=== PATIENT | male | born 2000 | race Hispanic/Latino ===

== ENCOUNTER 2019-09-24 00:44 | Emergency (ER) | payer MEDICAID, OTHER, SELFPAY | END 2019-09-24 01:31 | disposition home or self-care (01) | LOC: EDH 00:44 | DX: R06.00 Dyspnea, unspecified (principal); Z20.828 Contact with and (suspected) exposure to other viral communicable diseases; Z72.0 Tobacco use | CPT/HCPCS: 36415; 87635 ==

== ENCOUNTER 2019-12-18 17:50 | Emergency (ER) | payer OTHER, SELFPAY | END 2019-12-18 18:47 | disposition home or self-care (01) | LOC: EDH 17:50 | DX: R05 Cough (principal); R50.9 Fever, unspecified; R11.2 Nausea with vomiting, unspecified; M79.10 Myalgia, unspecified site; Z20.828 Contact with and (suspected) exposure to other viral communicable diseases; Z72.0 Tobacco use | CPT/HCPCS: 99281 ==

== ENCOUNTER 2020-03-15 22:27 | Emergency (ER) | payer OTHER ==
[2020-03-15 23:20] LABS: APPEARANCE,URINE Clear (CLEAR); BILIRUBIN,URINE Negative (NEGATIVE); COLOR,URINE Yellow (YELLOW); GLUCOSE, URINE (UA) Negative (NEGATIVE); KETONES,URINE Negative (NEGATIVE); LEUKOCYTE ESTERASE ,URINE Trace (NEGATIVE); NITRATE,URINE Negative (NEGATIVE); OCCULT BLOOD,URINE Negative (NEGATIVE); PH,URINE 7.5 (5.0-8.0); PROTEIN,URINE Negative (NEGATIVE)
[2020-03-15 23:43] LABS: BASOPHILS % (AUTO) 0.4 % (0.0-5.0); EOSINOPHILS % (AUTO) 1.1 % (0.0-8.0); HEMATOCRIT 48.4 % (42-54); LYMPHOCYTES % (AUTO) 18.5 % (21.0-51.0); MEAN CORPUSCULAR HEMOGLOBIN 29.8 pg (27.0-33.0); MEAN CORPUSCULAR HGB CONC 34.7 g/dL (32.0-36.0); MONOCYTES % (AUTO) 7.5 % (3.0-13.0); NEUTROPHILS % (AUTO) 72.3 % (40.0-77.0); PLATELET COUNT (AUTO) 177 K/uL (130-400); RED BLOOD CELL COUNT(AUTO) 5.63 MIL/uL (4.50-6.20); WHITE BLOOD COUNT (AUTO) 8.5 K/uL (4.8-10.8)
[2020-03-15 23:50] LABS: AMPHET/METH SCREEN,URINE NEGATIVE (NEGATIVE); BARBITURATE SCREEN, URINE NEGATIVE (NEGATIVE); BENZODIAZEPINES SCREEN,URINE NEGATIVE (NEGATIVE); CANNABINOID SCREEN,URINE NEGATIVE (NEGATIVE); COCAINE SCREEN,URINE NEGATIVE (NEGATIVE); OPIATE SCREEN,URINE NEGATIVE (NEGATIVE); PHENCYCLIDINE SCREEN,URINE NEGATIVE (NEGATIVE)
[2020-03-15 23:52] LABS: POTASSIUM 4.4 mmol/L (3.5-5.1)
[2020-03-16 00:01] LABS: AMORPHOUS SEDIMENT,UR Moderate /LPF (None Seen); BACTERIA,URINE Few /HPF (None Seen); RBC,URINE 0-1 /HPF (0-1); SQUAMOUS EPITHELIAL CELL,UR 0-2 /HPF (0-2)
[2020-03-16 00:06] LABS: ALBUMIN 4.5 g/dL (3.5-5.0); BILIRUBIN,TOTAL 0.4 mg/dL (0.2-1.0); THYROID STIMULATING HORMONE 0.44 uIU/mL (0.36-3.74)
== END 2020-03-16 01:13 | disposition home or self-care (01) ==
LOC: EDH 22:27
DX: E86.0 Dehydration (principal); R53.83 Other fatigue; R53.81 Other malaise; Z72.0 Tobacco use
CPT/HCPCS: 36415; 80053; 80305; 81001; 84443; 85025

== ENCOUNTER 2025-02-01 21:37 | Emergency (ER) | payer BC ==
[~2025-02-01] VITALS: Ht 188 cm; Wt 104.3 kg
[2025-02-01 21:38] VITALS: BP 149/93; PULSE 60; RESP 16; TEMP 97.3
--- NOTE | 2025-02-01 22:21 | NUR ---
PT AND STATES THEY AER LEAVING DUE TO WAIT TIME
== END 2025-02-01 22:21 | disposition left against medical advice (07) ==
LOC: EDH 21:37
DX: K08.89 Other specified disorders of teeth and supporting structures (principal); Z53.21 Procedure and treatment not carried out due to patient leaving prior to being seen by health care provider

== ENCOUNTER 2025-04-30 05:58 | Emergency (ER) | payer BC ==
[~2025-04-30] VITALS: Ht 188 cm; Wt 104.3 kg
--- NOTE | 2025-04-30 06:32 | ERN ---
ED Note History of Present Illness Stated Complaint: CHEST PAIN Chief Complaint: Chest Pain Time Seen by MD: 06:08 Dictation: This is a 24-year-old male presented to the emergency room with complaints of chest pain dizziness short of breath since his exposure to Ana fumes all day yesterday. Apparently it was indoors. No stridor wheezing. No coughing or hemoptysis. He complaints of multiple somatic complaints including chest pains that last for a few sec at a time and palpitations. No history of any trauma. No diaphoresis no syncope. He did state that he used to be a heavy smoker . He does state that he some shortness of breath. No cough sputum or hemoptysis. He and his both reported that he has been extremely tired for the past 4-5 years and has seen multiple specialists and they were told he may have anxiety. Given this I obtained additional sleep history during his previous visit in November 2024. Patient has a episodes of mild snoring gasping for air and he has woken himself up very scared and gasping for air. Unrefreshed sleep. Daytime somnolence. He does report brain fog. Temperature 98.2 pulse 66 respirations 18 blood pressure 128/92 with a pulse oximetry of 99% on room air Chronic problems include anxiety Allergies: Coded Allergies: No Known Drug Allergies (Unverified Allergy, Unknown, 12/18/19) Past Medical History Past Medical History: Anxiety Surgical History: None Family History: Negative Social History: Smokers, Drugs, ETOH RN Note Reviewed/Agreed w/PFSH: Yes Review of System Dictation Constitutional: Negative for fever,chills, and weight loss Eyes: Negative for injury, pain,redness, and discharge ENT: Negative for injury,pain or swelling Cardiovascular: Positive for chest pain, palpitations, and edema Respiratory: Positive for shortness of breath, cough, and wheezing, Abdomen/GI: Negative for abdominal pain, nausea, vomiting, diarrhea, and constipation Back: Negative for injury and pain : Negative for injury, bleeding and discharge MS/Extremity: Negative for injury and deformity Skin: Negative for rash, and discoloration Neuro: Negative for headache, weakness, numbness, tingling, and seizure Psych: Negative for suicide ideation, homicidal ideation, and hallucinations Initial Vital Sign VS Vital Signs Date Time Temp Pulse Resp B/P (MAP) Pulse Ox O2 Delivery O2 Flow Rate FiO2 04/30/25 05:59 98.2 66 18 128/92 99 Room Air 0 04/30/25 06:14 21 Physical Exam Dictation General: awake, alert, NAD generally anxious Head/Face: Normocephalic, atraumatic Eyes: PERRL, EOMI, vision at baseline ENT: oral cavity clear, TMs clear, no signs of infection Neck: Trachea midline, supple, no nuchal rigidity Cardiovascular: RRR, normal S1/S2, No MRGs, no JVD Respiratory: CTAB, no respiratory distress, No rales or wheezes Abdomen: Soft, non-tender, non-distended, normal bowel sounds, no guarding or rebound. Skin: Warm, dry, normal turgor, no rash MS/Extremity: Pulses equal, no cyanosis, neurovascular intact, FROM Neuro: COAx4, GCS 15, strength 5/5, CN 2-12 intact, normal cerebellar exam, nor mal gait, Psych: Normal behavior, mood, and affect normal Extremities-trace edema without any palpable cords, Homans sign is negative Results (Laboratory/Radiology) Laboratory/Radiology Laboratory Tests Test 04/30/25 06:06 04/30/25 07:04 White Blood Count 6.4 K/uL (4.8-10.8) Red Blood Count 5.85 MIL/uL (4.50-6.20) Hemoglobin 17.2 g/dL (14.0-18.0) Hematocrit 50.0 % (42-54) Mean Corpuscular Volume 85.5 fL (79-99) Mean Corpuscular Hemoglobin 29.4 pg (27.0-33.0) Mean Corpuscular Hemoglobin Concent 34.4 g/dL (32.0-36.0) Red Cell Distribution Width 12.2 % (11.0-15.5) Platelet Count 193 K/uL (130-400) Mean Platelet Volume 12.2 fL (7.5-10.5) H Immature Granulocyte % (Auto) 0.3 % (0-1) Neutrophils (%) (Auto) 61.4 % (40.0-77.0) Lymphocytes (%) (Auto) 25.7 % (21.0-51.0) Monocytes (%) (Auto) 10.1 % (3.0-13.0) Eosinophils (%) (Auto) 2.0 % (0.0-8.0) Basophils (%) (Auto) 0.5 % (0.0-5.0) Neutrophils # (Auto) 3.9 K/uL (1.8-7.7) Lymphocytes # (Auto) 1.7 K/uL (1.0-4.8) Monocytes # (Auto) 0.7 K/uL (0.1-1.0) Eosinophils # (Auto) 0.13 K/uL (0.00-0.70) Basophils # (Auto) 0.03 K/uL (0.00-0.20) Absolute Immature Granulocyte (auto 0.02 K/uL (0-1) Nucleated Red Blood Cells 0.0 % (0.0-0.19) Sodium Level 140 mmol/L (136-145) Potassium Level 4.0 mmol/L (3.5-5.1) Chloride Level 101 mmol/L (101-111) Carbon Dioxide Level 32 mmol/L (21-32) Blood Urea Nitrogen 16 mg/dL (7-18) Creatinine 1.1 mg/dL (0.5-1.3) Glomerular Filtration Rate Calc 95 mL/min (>90) Random Glucose 90 mg/dL (70-105) Total Calcium 9.1 mg/dL (8.5-10.1) Total Creatine Kinase 163 U/L (21-232) # Troponin I High Sensitivity 6 ng/L (4-75) Urine Color YELLOW (YELLOW) Urine Appearance CLEAR (CLEAR) Urine pH 5.5 (5.0-8.0) Urine Specific [place] 1.029 (1.001-1.031) Urine Protein NEGATIVE mg/dL (NEGATIVE) Urine Glucose (UA) NEGATIVE mg/dL (NEGATIVE) Urine Ketones NEGATIVE mg/dL (NEGATIVE) Urine Occult Blood NEGATIVE (NEGATIVE) Urine Nitrate NEGATIVE (NEGATIVE) Urine Bilirubin NEGATIVE mg/dL (NEGATIVE) Urine Urobilinogen 0.2 mg/dL (0.2-1.0) Urine Leukocyte Esterase NEGATIVE [place]/uL Urine Opiates Screen NEGATIVE (NEGATIVE) Urine Barbiturates Screen NEGATIVE (NEGATIVE) Urine Phencyclidine Screen NEGATIVE (NEGATIVE) Urine Amphetamines Screen NEGATIVE (NEGATIVE) Urine Benzodiazepines Screen NEGATIVE (NEGATIVE) Urine Cocaine Screen NEGATIVE (NEGATIVE) Urine Marijuana (THC) Screen NEGATIVE (NEGATIVE) Labs Reviewed?: Yes EKG Comment: 12 lead EKG done on 04/30/2025 at 6:01 a.m. showed a heart rate of 57, MD interval 170, QRS duration 104, QT/QTC 375/366 Impression normal sinus rhythm there is some borderline suggestion of ST-T elevations in the lateral leads with a no reciprocal changes in the inferior leads. He has been just be repolarization changes. We will also corroborate with the troponins Interpreted by ER MD Dr. Hartman X-RAY Comment: REASON: CHEST PAIN ORDERING PHYSICIAN: DAIN HARTMAN MD PROCEDURE: CXR1VW - CHEST 1VW EXAM: CR Chest, 1 View. CLINICAL HISTORY: CHEST PAIN COMPARISON: None provided. FINDINGS: LUNGS: The lungs show no infiltrate or other acute finding. PLEURAL SPACES: No pleural effusion or pneumothorax. MEDIASTINUM: Cardiac size and mediastinal contours within normal limits. BONES: No acute osseous abnormality. IMPRESSION: No acute cardiopulmonary pathology is evident. /[place] DICTATED BY: MARIANA GAN Jr., MD DATE: 04/30/25739 ELECTRONICALLY SIGNED BY: MARIANA GAN Jr., MD DATE: 04/30/25739 ED Course ED Course Orders Procedure Category Date Status Time 12 Lead Ekg Tracing- EKG 04/30/25 Complete Technical 06:05 Vital Signs Per CPOE 04/30/25 Transmitted Routine 06:13 Chest 1vw RAD 04/30/25 Resulted 06:13 Oxygen By Nc/Pulse Ox CPOE 04/30/25 Transmitted 06:13 Maintain Iv CPOE 04/30/25 Transmitted 06:13 Iv Insertion CPOE 04/30/25 Transmitted 06:13 Cardiac Monitoring CPOE 04/30/25 Transmitted 06:13 Pulse Oximetry With CPOE 04/30/25 Transmitted Vs And Prn 06:13 Cbc With Differential LAB 04/30/25 Complete 06:13 Activity: Br W/Brp CPOE 04/30/25 Transmitted With Assist 06:13 Creatine Kinase, Total LAB 04/30/25 Complete 06:13 Troponin I High LAB 04/30/25 Complete Sensitivity 06:13 Urinalysis Profile LAB 04/30/25 Complete 06:13 Basic Metabolic Panel LAB 04/30/25 Complete 06:13 Drug Screen Urine LAB 04/30/25 Complete 06:27 Methylprednisolone PHA 04/30/25 Complete Succ 40mg (Solu-Medro 06:30 Albuterol 0.083% PHA 04/30/25 Complete 2.5mg/3ml (Proventil 06:30 Aspirin 325mg Tab PHA 04/30/25 Complete (Aspirin 325mg Tab) 07:00 Current Medications Medications (Trade) Dose Ordered Sig/Kimberly Route PRN Reason Start Time Stop Time Status Last Admin Dose Admin Albuterol Sulfate (Proventil 0.083% 2.5mg/3ml) 2.5MG ONCE ONCE IH 04/30/25 06:30 04/30/25 06:31 DC 04/30/25 06:41 Aspirin (Aspirin 325mg Tab) 325 mg ONCE ONCE PO 04/30/25 07:00 04/30/25 07:01 DC 04/30/25 08:38 Methylprednisolone Sodium Succinate (Solu-medROL 40MG) 40 mg ONCE ONCE IVP 04/30/25 06:30 04/30/25 06:31 DC 04/30/25 06:41 Vital Signs Date Time Temp Pulse Resp B/P (MAP) Pulse Ox O2 Delivery O2 Flow Rate FiO2 04/30/25 08:36 98.2 70 18 131/60 99 Room Air* 0 21 04/30/25 07:25 98.2 73 18 124/58 99 Room Air* 0 21 04/30/25 06:39 71 20 04/30/25 06:14 97.9 69 18 129/63 98 Room Air* 0 21 04/30/25 05:59 98.2 66 18 128/92 99 Room Air 0 HEART Score Response (Comments) Value History: Low suspicion (0) 0 EKG: Repolarization changes 1 Age: < 45yrs (0) 0 Risk Factors: No known risk factors (0) 0 Initial Troponin: Normal limit (0) 0 HEART Score Risk: Low Risk for MACE (1-3) Total 1 Medical Decision Making MDM Differential diagnosis: Angina, ACS, Esophagitis, gastroesophageal reflux disease, hiatal hernia, gastritis, pericarditis, costochondritis, pleurisy, reactive airway dysfunction This is a 24-year-old male presented to the emergency room with complaints of chest pain dizziness short of breath since his exposure to Ana fumes all day yesterday. Apparently it was indoors. No stridor wheezing. No coughing or hemoptysis. He complaints of multiple somatic complaints including chest pains that last for a few sec at a time and palpitations. No history of any trauma. No diaphoresis no syncope. He did state that he used to be a heavy smoker . He does state that he some shortness of breath. No cough sputum or hemoptysis. He and his both reported that he has been extremely tired for the past 4-5 years and has seen multiple specialists and they were told he may have anxiety. Given this I obtained additional sleep history during his previous visit in November 2024. Patient has a episodes of mild snoring gasping for air and he has woken himself up very scared and gasping for air. Unrefreshed sleep. Daytime somnolence. He does report brain fog. Temperature 98.2 pulse 66 respirations 18 blood pressure 128/92 with a pulse oximetry of 99% on room air Chronic problems include anxiety 6:50 a.m. chest x-ray is unremarkable for any acute infiltrates. All the labs are pending at this time. A trial of steroid and bronchodilators for possible exposure to chemical fumes Care will be transitioned to oncoming physician Patient handed off at shift change re-evaluated vital signs all stable chest pain now resolved, negative workup chest x-ray EKG and cardiac biomarkers were all negative stable for discharge heart score 0. 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 The patient is now being discharged to home and should follow up with the primary care physician or the specialist as directed by the ER staff. If your symptoms continue, you will need evaluation by a nutrition services aide and PFTs. Adhering to work place safety precautions and wearing protective gear Referrals: FERNY NEUMANN MD (PCP) DAIN HARTMAN MD Apr 30, 2025 06:32 ANDRES IVY MD Apr 30, 2025 08:29
[2025-04-30 06:39] VITALS: PULSE 71; RESP 20
[2025-04-30] MEDS: Solu-medROL 40MG VIAL IVP ONE (06:41)
[2025-04-30] MEDS: ALBUTEROL 0.083% 2.5 MG/3 ML INH IH ONE (06:41)
--- NOTE | 2025-04-30 06:41 | HMCIMG ---
EXAM: CR Chest, 1 View. CLINICAL HISTORY: CHEST PAIN COMPARISON: None provided. FINDINGS: LUNGS: The lungs show no infiltrate or other acute finding. PLEURAL SPACES: No pleural effusion or pneumothorax. MEDIASTINUM: Cardiac size and mediastinal contours within normal limits. BONES: No acute osseous abnormality. IMPRESSION: No acute cardiopulmonary pathology is evident. /[place]
--- NOTE | 2025-04-30 07:04 | EKG ---
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
[2025-04-30 07:20] LABS: APPEARANCE,URINE CLEAR (CLEAR); GLUCOSE, URINE (UA) NEGATIVE (NEGATIVE); LEUKOCYTE ESTERASE ,URINE NEGATIVE Leu/uL (NEGATIVE); NITRATE,URINE NEGATIVE (NEGATIVE); OCCULT BLOOD,URINE NEGATIVE (NEGATIVE)
[2025-04-30 07:21] LABS: AMPHET/METH SCREEN,URINE NEGATIVE (NEGATIVE); BARBITURATE SCREEN, URINE NEGATIVE (NEGATIVE); CANNABINOID SCREEN,URINE NEGATIVE (NEGATIVE); COCAINE SCREEN,URINE NEGATIVE (NEGATIVE)
[2025-04-30 07:23] LABS: ADD UA MICROSCOPIC NO
[2025-04-30 07:28] LABS: IMMATURE GRANULOCYTE ABSOLUTE 0.02 K/uL (0-1); NUCLEATED RED BLOOD CELLS 0.0 % (0.0-0.19); PLATELET COUNT (AUTO) 193 K/uL (130-400); RED BLOOD CELL COUNT(AUTO) 5.85 MIL/uL (4.50-6.20); RED CELL DISTRIBUTION WIDTH 12.2 % (11.0-15.5); WHITE BLOOD COUNT (AUTO) 6.4 K/uL (4.8-10.8)
[2025-04-30 07:48] LABS: CREATINE KINASE, TOTAL 163.0 U/L (21-232); CREATININE 1.1 mg/dL (0.5-1.3); GLOMERULAR FILTR. RATE CALC 95.0 mL/min (>90); GLUCOSE,RANDOM 90.0 mg/dL (70-105); SODIUM SERUM 140.0 mmol/L (136-145); UREA NITROGEN, BLOOD 16.0 mg/dL (7-18)
[2025-04-30 08:36] VITALS: BP 131/60; PULSE 70; RESP 18; TEMP 98.2; O2SAT 99
[2025-04-30] MEDS: ASPIRIN 325MG TAB PO ONE (08:38)
== END 2025-04-30 08:41 | disposition home or self-care (01) ==
LOC: EDH 05:58
DX: R07.89 Other chest pain (principal); J68.3 Other acute and subacute respiratory conditions due to chemicals, gases, fumes and vapors; F17.290 Nicotine dependence, other tobacco product, uncomplicated; I25.2 Old myocardial infarction
CPT/HCPCS: 99284; 96374; 71045; 82550; 84484; 80048; 80305; 85025; 81003; 36415; 93005; 94640; J2919